=== PATIENT | male | born 1980 | race Caucasian/White ===

== ENCOUNTER 2020-12-27 03:20 | Emergency (ER) | payer MEDICAID ==
[~2020-12-27] VITALS: Ht 175.3 cm; Wt 72.6 kg
[2020-12-27 03:28] VITALS: BP 161/89
[2020-12-27] MEDS ORDERED: FOLIC ACID 1 MG TAB PO ONE (03:30)
[2020-12-27] MEDS ORDERED: ONDANSETRON 4 MG/2 ML VIAL IVP ONE (03:30)
[2020-12-27] MEDS ORDERED: THIAMINE 200 MG/2 ML VIAL IV ONE (03:30)
[2020-12-27] MEDS ORDERED: NACL 0.9% 1,500 ML IV ONE (03:30)
[2020-12-27] MEDS ORDERED: LORazepam 2 MG/ML VIAL IVP ONE (03:30)
--- NOTE | 2020-12-27 03:50 | NUR ---
PT BIV KISHAN SANCHEZ, AMBULATED TO BED, CC OF ETOH AND ANXIETY, PT DRANK 2 PINTS OF VODKA AT HOME, PT STATED "HE CALLED 911 D/T ANXIETY AND WANTING A BANANA BAG", INITIAL ASSESSMENT COMPLETE, VSS, NO SIGNS OF ACUTE DISTRESS NOTED PMH: HTN, ALC ABUSE ALLERGIES: NSAIDS
--- NOTE | 2020-12-27 04:05 | NUR ---
ERMD AT BEDSIDE
--- NOTE | 2020-12-27 04:17 | NUR ---
INSERTED 20 G PIV TO LAC, ADMINISTERED ERMD MED ORDERS
[2020-12-27] MEDS ORDERED: DEXT 5% / NACL 0.9% 1,000 ML IV ONE (04:35)
--- NOTE | 2020-12-27 04:56 | NUR ---
PT AMBULATED TO RESTROOM
--- NOTE | 2020-12-27 06:04 | NUR ---
Patient discharged with v/s stable. Written and verbal after care instructions given and explained. Patient verbalized understanding. Ambulatory with steady gait. All questions addressed prior to discharge. Advised to follow up with PMD.
== END 2020-12-27 06:00 | disposition home or self-care (01) ==
LOC: MED 03:20
DX: F10.129 Alcohol abuse with intoxication, unspecified (principal); Z88.6 Allergy status to analgesic agent
CPT/HCPCS: 96361; 96374; 96375; 99284; J2060; J2405; J3411; J7042